=== PATIENT | female | born 1960 | race Caucasian/White ===

== ENCOUNTER 2019-01-21 11:52 | Emergency (ER) | payer OTHER ==
[~2019-01-21] VITALS: Ht 165.1 cm; Wt 49.9 kg
[2019-01-21] MEDS ORDERED: NORCO 5-325 TA1 EAC1 PO (12:22)
[2019-01-21] MEDS ORDERED: CIPRODEX OTIC7.5 ML OTIC (12:22)
[2019-01-21] MEDS ORDERED: CEFDINIR300 MG PO (12:22)
[2019-01-21 12:49] VITALS: BP 137/82
== END 2019-01-21 12:49 | disposition home or self-care (01) ==
LOC: M.ERS 11:52
DX: H66.93 Otitis media, unspecified, bilateral (principal); H72.91 Unspecified perforation of tympanic membrane, right ear; Z88.0 Allergy status to penicillin

== ENCOUNTER 2019-02-07 15:02 | Emergency (ER) | payer OTHER ==
[~2019-02-07] VITALS: Ht 165.1 cm; Wt 49.9 kg
[~2019-02-07 15:02] MED LIST: CEFDINIR300 MG PO; CIPRODEX OTIC7.5 ML OTIC; NORCO 5-325 TA1 EAC1 PO
[2019-02-07] MEDS ORDERED: NAPROSYN500 M1 PO (16:20)
[2019-02-07 16:34] VITALS: BP 168/116
== END 2019-02-07 16:34 | disposition home or self-care (01) ==
LOC: M.ERS 15:02
DX: S20.211A Contusion of right front wall of thorax, initial encounter (principal); R03.0 Elevated blood-pressure reading, without diagnosis of hypertension; F17.210 Nicotine dependence, cigarettes, uncomplicated; Z88.0 Allergy status to penicillin; X58.XXXA Exposure to other specified factors, initial encounter; Y93.89 Activity, other specified; Y92.89 Other specified places as the place of occurrence of the external cause; Y99.8 Other external cause status

== ENCOUNTER 2019-02-20 13:24 | Emergency (ER) | payer OTHER ==
[~2019-02-20] VITALS: Ht 165.1 cm; Wt 49.9 kg
[~2019-02-20 13:24] MED LIST changes: +NAPROSYN500 M1 PO
[2019-02-20 14:12] LABS: ABSOLUTE BASOPHILS 0.1 thou/uL (0.0-0.2); ABSOLUTE EOSINOPHILS 0.1 thou/uL (0.0-0.7); ABSOLUTE LYMPHOCYTES 1.6 thou/uL (0.8-5.3); ABSOLUTE MONOCYTES 0.7 thou/uL (0.0-1.2); ABSOLUTE NEUTROPHILS 3.4 thou/uL (1.6-8.1); BASOPHILS 1.1 %; EOSINOPHILS 2.4 %; HEMATOCRIT 40.9 % (37.0-47.0); HEMOGLOBIN 14.1 gm/dL (12.0-15.0); MCH 33.5 pg (26.0-34.0); MCHC 34.4 g/dL (28.0-37.0); MCV 97.2 fL (80.0-100.0); MONOCYTES 12.6 %; MPV 7.3 fl. (7.2-11.1); NUCLEATED RBCS 0 /100WBC; PLATELET COUNT* 184 thou/uL (150-400); POLYS 56.9 %; RDW-CV 14.8 % (10.5-14.5); WBC 5.9 thou/uL (4.0-11.0)
[2019-02-20 14:24] LABS: CREATININE 0.7 mg/dL (0.6-1.3); POTASSIUM 3.7 mmol/L (3.5-5.1)
[2019-02-20 14:34] LABS: ALBUMIN 3.6 g/dL (3.4-5.0); MAGNESIUM 1.8 mg/dL (1.8-2.4); TOTAL BILIRUBIN 0.2 mg/dL (<0.1-1.0); TOTAL PROTEIN 7.9 g/dL (6.4-8.2)
[2019-02-20] MEDS ORDERED: VENTOLIN HFA 1818 GM INH (14:49)
[2019-02-20] MEDS ORDERED: PREDNISONE50 MG PO (14:49)
[2019-02-20 15:08] VITALS: BP 165/72
--- NOTE | 2019-02-20 16:50 | EKG ---
[place] [address] ELECTROCARDIOGRAM REPORT Name: TEJAS KILGORE Room: [facility]#: [id number] Admission: 02/20/19 Attend Phys: Discharge: 02/20/19 Date of : 56 Report #: [id number] THIS REPORT FOR: //name// [facility] ED Test Date: 2019-02-20 Test Time: 13:51:57 Pat Name: TEJAS KILGORE Department: Room: Gender: F Equipment Mechanic Specialist: : [id number] Requested By: Joey Fox Order Number: [id number] MD: Wade Collazo Measurements Intervals [place] Rate: 91 P: 72 ND: 170 QRS: 73 QRSD: 73 T: 73 QT: 371 QTc: 457 Interpretive Statements Sinus rhythm RSR' in V1 or V2, probably normal variant Baseline wander in lead(s) V4 No previous ECG available for comparison Electronically Signed On 02-20-2019 16:50:03 [employer] by Wade Collazo [email or web address] <ELECTRONICALLY SIGNED> By: Wade Collazo MD, [facility] 02/20/19 [id number] Wade Collazo MD, FACC /EPI
== END 2019-02-20 15:11 | disposition home or self-care (01) ==
LOC: M.ERS 13:24
PROVIDERS: Emergency Medicine Emergency Medical Services
DX: B34.9 Viral infection, unspecified (principal); F17.210 Nicotine dependence, cigarettes, uncomplicated; Z88.0 Allergy status to penicillin